=== PATIENT | female | born 1995 | race Two or more races ===

== ENCOUNTER 2017-01-06 10:05 | Emergency (ER) | payer OTHER ==
[~2017-01-06] VITALS: Ht 167.6 cm; Wt 145.5 kg
[~2017-01-06 10:05] MED LIST: ADVIL,NUPRIN,M200 MG PO; ALEVE220 MG PO; CEFTIN500 MG PO; FEROSUL325 MG PO; LEVOTHYROXINE100 MCG PO; MONONESSA1 EACH PO; MOTRIN600 MG PO; PERCOCET 5/31 TABLET PO; SYNTHROID100 MCG PO; TYLENOL WITH C1 EACH PO; ULTRAM50 MG PO; VALIUM5 MG PO; ZOFRAN4 MG PO
[2017-01-06 12:09] LABS: HEMATOCRIT 33.5 % (36.0-46.0); MCH 21.5 PG (29.0-34.0); MCHC 30.7 G/DL (30.0-36.0); MCV 70.1 FL (83-99); MEAN PLAT.VOLUME 9.4 uM^3 (9.5-12.4); PLATELET COUNT 398 K/uL (156-360); RBC DIS.WIDTH-CV 15.3 % (11.8-14.6); RBC DIS.WIDTH-SD 38.1 % (39-53); RED BLOOD COUNT 4.78 M/uL (3.80-5.20); WHITE BLOOD COUNT 8.1 K/uL (4.1-10.2)
[2017-01-06 12:11] LABS: ADD MIUA? YES; BILIRUBIN NEGATIVE; BLOOD LARGE; COLOR BLOODY ((YELLOW)); GLUCOSE (STRIP) NEGATIVE; KETONES TRACE; LEUKOCYTES NEGATIVE; NITRITE NEGATIVE; PROTEIN (STRIP) 100; UROBILINOGEN 0.2 MG/DL (0.2-1.0)
[2017-01-06 12:16] LABS: CHLORIDE 109 mEq/L (99-109); POTASSIUM 4.1 mEq/L (3.7-5.4); SODIUM 141 mEq/L (136-147)
[2017-01-06 12:17] LABS: RED BLOOD CELLS TNTC /HPF (0-5); UCUL ADDED? YES
[2017-01-06 12:18] LABS: GLUCOSE 92 mg/dL (70-99)
[2017-01-06 12:19] LABS: ANION GAP 8 MEQ/L (2-14)
[2017-01-06 12:22] LABS: GFR ESTIMATE (CALCULATED) > 59 mL/min/
[2017-01-06 12:24] LABS: UREA NITROGEN (BUN) 8 mg/dL (9-23)
[2017-01-06 12:43] LABS: INTERNAL CONTROL VALID? YES
[2017-01-06 13:48] VITALS: BP 139/72
== END 2017-01-06 14:00 | disposition home or self-care (01) ==
LOC: EME 10:05
PROVIDERS: Emergency Medicine
DX: N93.9 Abnormal uterine and vaginal bleeding, unspecified (principal); D64.9 Anemia, unspecified; R42 Dizziness and giddiness; R10.2 Pelvic and perineal pain; E03.9 Hypothyroidism, unspecified
CPT/HCPCS: 76856; 80048; 81003; 84703; 85027; 87086; 99281; 99284